=== PATIENT | female | born 1995 ===

== ENCOUNTER 2025-03-22 03:50 | Inpatient (IN) | payer OTHER ==
[2025-03-22] MEDS: ELECTROLYTE-148 SOLN 1,000 ML IV SCH ×2 (05:20→10:36)
[2025-03-22 05:53] VITALS: BMI 35.5
[2025-03-22 06:05] LABS: INR 0.96 (0.83-1.09); PROTHROMBIN TIME (PATIENT) 10.5 SEC (9.7-13.0)
[2025-03-22 06:06] LABS: POTASSIUM 3.9 mmol/L (3.5-5.1)
[2025-03-22 06:08] LABS: BLOOD UREA NITROGEN 6.7 mg/dL (7-18); CALCIUM 9.2 mg/dL (8.5-10.1)
[2025-03-22 06:12] LABS: CREATININE 0.4 mg/dL (0.55-1.3)
[2025-03-22 06:29] LABS: ABSOLUTE IMMATURE GRANULOCYTES 0.03 x10^3/uL (0.0-0.031); BASOPHILS # 0.02 x10^3/uL (0.01-0.08); EOSINOPHIL % 0.4 % (0.7-5.8); EOSINOPHILS # 0.03 x10^3/uL (0.04-0.36); HEMATOCRIT 36.6 % (34.1-44.9); HEMOGLOBIN 12.4 g/dL (11.2-15.7); MCHC 33.9 g/dl (32.2-35.5); MEAN CELL VOLUME 88.2 fl (79.4-94.8); MEAN PLT VOLUME 11.3 fl (9.4-12.3); MONOCYTE # 0.68 x10^3/uL (0.24-0.86); MONOCYTE % 8.6 % (4.7-12.5); PLATELET COUNT 145 x10^3/uL (182-369); RDW 13.5 % (12.1-16.8)
[2025-03-22] MEDS: OXYTOCIN 30 UNITS in 0.9% NS 30 UNIT/500 ML INFUS.BAG IVPB SCH (09:20)
[2025-03-22] MEDS ORDERED: FENTANYL/BUPIVACAINE/NS/PF - PCEA - 50 ML DISP.SYRIN EP ONE (10:42)
[2025-03-22] MEDS: FENTANYL/BUPIVACAINE/NS/PF - PCEA - 50 ML DISP.SYRIN EP SCH (11:05)
[2025-03-22] MEDS ORDERED: NALOXONE HCL 0.4 MG/ML VIAL IVPUSH PRN (11:36)
[2025-03-22] MEDS ORDERED: OXYTOCIN 20 UNITS in 0.9% NS 20 UNIT/1,000 ML INFUS.BAG IV ONE (12:03)
[2025-03-22] MEDS ORDERED: oxyCODONE HCL 5 MG TABLET PO PRN (12:49)
[2025-03-22] MEDS ORDERED: BISACODYL 10 MG SUPP.RECT RC PRN (12:49)
[2025-03-22] MEDS ORDERED: ACETAMINOPHEN 325 MG TABLET (FP) PO PRN (12:49)
[2025-03-22] MEDS ORDERED: BENZOCAINE 28 GM HEMORRHOIDAL OINTMENT TP PRN (12:49)
[2025-03-22 13:09] LABS: CORD BASE EXCESS -4.3 mmol/L (0-2); CORD HCO3 23.2 mmHg (20-29); CORD PCO2 51.5 mmHg (30-78); CORD pH 7.271 (7.14-7.44)
[2025-03-22 13:13] LABS: CORD BASE EXCESS -4.2 mmol/L (0-2); CORD PCO2 29.9 mmHg (30-78); CORD pH 7.42 (7.14-7.44)
[2025-03-22] MEDS: OXYTOCIN 20 UNITS in 0.9% NS 20 UNIT/1,000 ML INFUS.BAG IV SCH (13:40)
[2025-03-22] MEDS: METHYLERGONOVINE MALEATE 0.2 MG/1 ML AMP IM PRN (14:00)
[2025-03-22] MEDS: IBUPROFEN 600 MG TABLET (FP) PO PRN (15:11)
[2025-03-22] MEDS: BENZOCAINE 20% 57 GM BOTTLE TP PRN (15:12)
[2025-03-22] MEDS: WITCH HAZEL 50% (TUCKS) 40 PAD/JAR PAD TP PRN (15:12)
[2025-03-23 08:08] LABS: ABSOLUTE IMMATURE GRANULOCYTES 0.05 x10^3/uL (0.0-0.031); BASOPHILS # 0.03 x10^3/uL (0.01-0.08); EOSINOPHIL % 0.3 % (0.7-5.8); EOSINOPHILS # 0.03 x10^3/uL (0.04-0.36); HEMATOCRIT 34.8 % (34.1-44.9); MEAN CELL VOLUME 89.5 fl (79.4-94.8)
[2025-03-23 08:09] LABS: HEMOGLOBIN 11.5 g/dL (11.2-15.7); MEAN PLT VOLUME 11.3 fl (9.4-12.3); MONOCYTE # 0.67 x10^3/uL (0.24-0.86); MONOCYTE % 7.5 % (4.7-12.5); PLATELET COUNT 134 x10^3/uL (182-369); RDW 13.7 % (12.1-16.8)
[2025-03-23] MEDS: PRENATAL VITAMINS W/ FOLIC ACID TABLET (FP) PO SCH (08:37)
[2025-03-23] MEDS ORDERED: SENNOSIDES/DOCUSATE COMBO (SENNA PLUS) TABLET (UD) PO PRN (22:00)
[2025-03-23 23:08] VITALS: PULSE 72
[2025-03-24 09:50] VITALS: BP 125/80; RESP 17; TEMP 97.9
== END 2025-03-24 12:05 | disposition home or self-care (01) | DRG 807 ==
LOC: JDEL 03:50 → JLDR 05:05 → J3W 14:54
PROVIDERS: ADMIT Obstetrics & Gynecology; ATTEND Obstetrics & Gynecology
PROC: 0KQM0ZZ Repair Perineum Muscle, Open Approach (ICD-10-PCS; principal; 2025-03-22)
PROC: 10E0XZZ Delivery of Products of Conception, External Approach (ICD-10-PCS; 2025-03-22)
DX: O48.0 Post-term pregnancy (principal); Z37.0 Single live birth; O70.0 First degree perineal laceration during delivery; Z3A.40 40 weeks gestation of pregnancy
CPT/HCPCS: 36415; 36600; 59025; 59409; 80048; 82803; 85025; 85461; 85610; 85730; 86780; 86850; 86900; 86901; 96372; J2790